=== PATIENT | male | born 1970 | race Caucasian/White ===

== ENCOUNTER 2023-01-31 16:16 | Inpatient (IN) | payer OTHER ==
[2023-01-31 17:21] VITALS: BMI 34.0
[2023-01-31] MEDS ORDERED: DICYCLOMINE HCL 10 MG CAPSULE PO PRN (17:57)
[2023-01-31] MEDS ORDERED: BISMUTH SUBSALICYLATE 524 MG/30 ML PO PRN (17:57)
[2023-01-31] MEDS ORDERED: IBUPROFEN 600 MG TABLET (FP) PO PRN (17:57)
[2023-01-31] MEDS ORDERED: BENZONATATE 200 MG CAPSULE PO PRN (17:57)
[2023-01-31] MEDS ORDERED: guaiFENesin 600 MG TABLET.ER (FP) PO PRN (17:57)
[2023-01-31] MEDS ORDERED: BENZOCAINE/MENTHOL (CHLORASEPTIC ) LOZENGE MM PRN (17:57)
[2023-01-31] MEDS ORDERED: NALOXONE HCL 0.4 MG/ML VIAL IM PRN (17:57)
[2023-01-31] MEDS ORDERED: POLYETHYLENE GLYCOL (HEALTHYLAX) 3350 17 GM PACKET PO PRN (17:57)
[2023-01-31] MEDS ORDERED: LOPERAMIDE HCL 2 MG CAPSULE PO PRN (17:57)
[2023-01-31] MEDS ORDERED: MAGNESIUM HYDROX 2400MG/30ML ORAL SUSPENSION 30 ML CUP PO PRN (17:57)
[2023-01-31] MEDS ORDERED: IBUPROFEN 400 MG TABLET (FP) PO PRN (17:57)
[2023-01-31] MEDS ORDERED: ACETAMINOPHEN 325 MG TABLET (FP) PO PRN (17:57)
[2023-01-31] MEDS ORDERED: MAG HYDROX/AL HYDROX/SIMETH 30 ML UNIT-DOSE CUP PO PRN (17:57)
[2023-01-31] MEDS ORDERED: ONDANSETRON *ODT* 4 MG TABLET SL PRN (17:57)
[2023-01-31] MEDS ORDERED: NALOXONE HCL (KLOXXADO) 8 MG SPRAY NS PRN (17:57)
[2023-01-31] MEDS ORDERED: MELATONIN 5 MG TABLETS PO SCH (22:00)
[2023-01-31] MEDS: METHOCARBAMOL 500 MG TABLET PO PRN (22:11)
[2023-01-31] MEDS: GABAPENTIN 300 MG CAPSULE PO SCH (22:11)
[2023-01-31] MEDS: THIAMINE HCL 100 MG TABLET (FP) PO SCH (22:11)
[2023-02-01] MEDS: GABAPENTIN 300 MG CAPSULE PO SCH ×3 (05:56→22:26)
[2023-02-01] MEDS: hydrOXYzine PAMOATE 25 MG CAPSULE (FP) PO PRN (05:57)
[2023-02-01] MEDS ORDERED: PANTOPRAZOLE 40 MG TABLET PO ONE (06:02)
[2023-02-01] MEDS ORDERED: PANTOPRAZOLE 40 MG TABLET PO SCH (10:00)
[2023-02-01] MEDS: PRENATAL VITAMINS W/ FOLIC ACID TABLET (FP) PO SCH (10:16)
[2023-02-01] MEDS ORDERED: chlordiazePOXIDE HCL 25 MG CAPSULE PO PRN (10:42)
[2023-02-01 10:46] LABS: POTASSIUM 4.4 mmol/L (3.5-5.1)
[2023-02-01 11:00] LABS: ALBUMIN 3.8 g/dl (3.4-5.0); BLOOD UREA NITROGEN 7.9 mg/dL (7-18)
[2023-02-01 11:01] LABS: BILIRUBIN,TOTAL 1.1 mg/dL (0.2-1)
[2023-02-01 11:03] LABS: CREATININE 0.9 mg/dL (0.55-1.3)
[2023-02-01 11:04] LABS: HEMATOCRIT 39.3 % (35.4-49); HEMOGLOBIN 13.9 GM/dL (11.7-16.9); MCH 33.6 pg (25.7-33.7); MCHC 35.3 g/dl (32.0-35.9); MEAN CELL VOLUME 95.1 fl (80-96); MEAN PLT VOLUME 9.2 fl (7.5-11.1); PLATELET COUNT 208 10^3/uL (134-434); RBC 4.14 M/mm3 (4.00-5.60); RDW 13.6 % (11.9-15.9); WHITE BLOOD COUNT 4.4 K/mm3 (4.0-10.0)
[2023-02-01] MEDS: chlordiazePOXIDE HCL 25 MG CAPSULE PO SCH ×3 (11:06→22:25)
[2023-02-01] MEDS: TOPIRAMATE 25 MG TABLET PO SCH ×2 (11:35→22:25)
[2023-02-01] MEDS ORDERED: SUVOREXANT 10 MG TABLET PO PRN (22:00)
[2023-02-01] MEDS: THIAMINE HCL 100 MG TABLET (FP) PO SCH (22:24)
[2023-02-02] MEDS: chlordiazePOXIDE HCL 25 MG CAPSULE PO SCH ×4 (05:38→22:24)
[2023-02-02] MEDS: GABAPENTIN 300 MG CAPSULE PO SCH ×3 (05:39→22:24)
[2023-02-02] MEDS: PANTOPRAZOLE 40 MG TABLET PO SCH (06:31)
[2023-02-02] MEDS: PRENATAL VITAMINS W/ FOLIC ACID TABLET (FP) PO SCH (10:23)
[2023-02-02] MEDS: TOPIRAMATE 25 MG TABLET PO SCH ×2 (10:23→22:24)
[2023-02-02] MEDS: METHOCARBAMOL 500 MG TABLET PO PRN (14:11)
[2023-02-02] MEDS: hydrOXYzine PAMOATE 25 MG CAPSULE (FP) PO PRN (14:11)
[2023-02-02] MEDS: THIAMINE HCL 100 MG TABLET (FP) PO SCH (22:24)
[2023-02-03] MEDS: GABAPENTIN 300 MG CAPSULE PO SCH ×3 (05:43→22:11)
[2023-02-03] MEDS: chlordiazePOXIDE HCL 25 MG CAPSULE PO SCH ×4 (05:43→22:12)
[2023-02-03] MEDS: PANTOPRAZOLE 40 MG TABLET PO SCH (06:30)
[2023-02-03] MEDS: TOPIRAMATE 25 MG TABLET PO SCH ×2 (10:19→22:12)
[2023-02-03] MEDS: PRENATAL VITAMINS W/ FOLIC ACID TABLET (FP) PO SCH (10:19)
[2023-02-03] MEDS: THIAMINE HCL 100 MG TABLET (FP) PO SCH (22:12)
[2023-02-04] MEDS ORDERED: chlordiazePOXIDE HCL 10 MG CAPSULE PO PRN
[2023-02-04] MEDS: chlordiazePOXIDE HCL 10 MG CAPSULE PO SCH ×4 (05:24→22:16)
[2023-02-04] MEDS: GABAPENTIN 300 MG CAPSULE PO SCH ×3 (05:24→22:16)
[2023-02-04] MEDS: PANTOPRAZOLE 40 MG TABLET PO SCH (06:03)
[2023-02-04] MEDS: PRENATAL VITAMINS W/ FOLIC ACID TABLET (FP) PO SCH (09:52)
[2023-02-04] MEDS: TOPIRAMATE 25 MG TABLET PO SCH ×2 (09:53→22:16)
[2023-02-04] MEDS: hydrOXYzine PAMOATE 25 MG CAPSULE (FP) PO PRN (09:54)
[2023-02-04] MEDS: METHOCARBAMOL 500 MG TABLET PO PRN (09:54)
[2023-02-04] MEDS: THIAMINE HCL 100 MG TABLET (FP) PO SCH (22:16)
[2023-02-05] MEDS: chlordiazePOXIDE HCL 10 MG CAPSULE PO SCH ×2 (05:31→16:58)
[2023-02-05] MEDS: GABAPENTIN 300 MG CAPSULE PO SCH ×3 (05:31→22:08)
[2023-02-05] MEDS: PANTOPRAZOLE 40 MG TABLET PO SCH (06:57)
[2023-02-05] MEDS: METHOCARBAMOL 500 MG TABLET PO PRN (09:55)
[2023-02-05] MEDS: PRENATAL VITAMINS W/ FOLIC ACID TABLET (FP) PO SCH (09:55)
[2023-02-05] MEDS: hydrOXYzine PAMOATE 25 MG CAPSULE (FP) PO PRN ×2 (09:55→22:12)
[2023-02-05] MEDS: TOPIRAMATE 25 MG TABLET PO SCH ×2 (09:56→22:09)
[2023-02-05] MEDS ORDERED: chlordiazePOXIDE 5 MG CAPSULE PO ONE (11:45)
[2023-02-05] MEDS: THIAMINE HCL 100 MG TABLET (FP) PO SCH (22:08)
[2023-02-05] MEDS ORDERED: MELATONIN 5 MG TABLETS PO PRN (22:49)
[2023-02-06] MEDS ORDERED: chlordiazePOXIDE HCL 10 MG CAPSULE PO ONE (05:00)
[2023-02-06] MEDS: GABAPENTIN 300 MG CAPSULE PO SCH (05:29)
[2023-02-06] MEDS: PANTOPRAZOLE 40 MG TABLET PO SCH (06:04)
[2023-02-06 08:54] VITALS: BP 121/86; PULSE 81; RESP 16; TEMP 98.7
[2023-02-06] MEDS: TOPIRAMATE 25 MG TABLET PO SCH (09:16)
[2023-02-06] MEDS: PRENATAL VITAMINS W/ FOLIC ACID TABLET (FP) PO SCH (09:17)
== END 2023-02-06 09:19 | disposition home or self-care (01) | DRG 775 ==
LOC: YASAS 16:16 → Y6N 18:03
PROVIDERS: ADMIT Allergy & Immunology; ATTEND Surgery
PROC: HZ2ZZZZ Detoxification Services for Substance Abuse Treatment (ICD-10-PCS; principal; 2023-01-31)
DX: F10.230 Alcohol dependence with withdrawal, uncomplicated (principal); F12.20 Cannabis dependence, uncomplicated; F43.10 Post-traumatic stress disorder, unspecified; F10.282 Alcohol dependence with alcohol-induced sleep disorder; F10.24 Alcohol dependence with alcohol-induced mood disorder; F32.9 Major depressive disorder, single episode, unspecified; G62.9 Polyneuropathy, unspecified; K21.9 Gastro-esophageal reflux disease without esophagitis; G47.30 Sleep apnea, unspecified; R60.0 Localized edema; Z62.810 Personal history of physical and sexual abuse in childhood; Z28.310 Unvaccinated for COVID-19; Z28.9 Immunization not carried out for unspecified reason; Z87.891 Personal history of nicotine dependence
CPT/HCPCS: 36415; 80053; 85027; 86780; 87635

== ENCOUNTER 2023-07-18 18:23 | Inpatient (IN) | payer OTHER ==
[2023-07-18 20:35] VITALS: BMI 31.5
[2023-07-18] MEDS ORDERED: chlordiazePOXIDE HCL 25 MG CAPSULE ONE (23:55)
[2023-07-18] MEDS ORDERED: LOPERAMIDE HCL 2 MG CAPSULE PO PRN (23:56)
[2023-07-18] MEDS ORDERED: BISMUTH SUBSALICYLATE 524 MG/30 ML PO PRN (23:56)
[2023-07-18] MEDS ORDERED: guaiFENesin 600 MG TABLET.ER (FP) PO PRN (23:56)
[2023-07-18] MEDS ORDERED: ACETAMINOPHEN 325 MG TABLET (FP) PO PRN (23:56)
[2023-07-18] MEDS ORDERED: METHOCARBAMOL 500 MG TABLET PO PRN (23:56)
[2023-07-18] MEDS ORDERED: BENZOCAINE/MENTHOL (CHLORASEPTIC ) LOZENGE MM PRN (23:56)
[2023-07-18] MEDS ORDERED: P-EPHED 60MG/TRIPROLIDI 2.5MG TABLET PO PRN (23:56)
[2023-07-18] MEDS ORDERED: MAGNESIUM HYDROX 2400MG/30ML ORAL SUSPENSION 30 ML CUP PO PRN (23:56)
[2023-07-18] MEDS ORDERED: IBUPROFEN 400 MG TABLET (FP) PO PRN (23:56)
[2023-07-18] MEDS ORDERED: IBUPROFEN 600 MG TABLET (FP) PO PRN (23:56)
[2023-07-18] MEDS ORDERED: ONDANSETRON *ODT* 4 MG TABLET SL PRN (23:56)
[2023-07-18] MEDS ORDERED: POLYETHYLENE GLYCOL (HEALTHYLAX) 3350 17 GM PACKET PO PRN (23:56)
[2023-07-18] MEDS ORDERED: BENZONATATE 200 MG CAPSULE PO PRN (23:56)
[2023-07-18] MEDS ORDERED: DICYCLOMINE HCL 10 MG CAPSULE PO PRN (23:56)
[2023-07-19] MEDS: chlordiazePOXIDE HCL 25 MG CAPSULE PO SCH (00:09)
[2023-07-19] MEDS: GABAPENTIN 300 MG CAPSULE PO SCH (00:10)
[2023-07-19] MEDS: PANTOPRAZOLE 20 MG TABLET PO ONE (00:10)
[2023-07-19] MEDS: MAG HYDROX/AL HYDROX/SIMETH 30 ML UNIT-DOSE CUP PO ONE (00:10)
[2023-07-19] MEDS: PRENATAL VITAMINS W/ FOLIC ACID TABLET (FP) PO SCH (10:17)
[2023-07-19] MEDS: chlordiazePOXIDE HCL 25 MG CAPSULE PO PRN (12:23)
[2023-07-19 12:28] LABS: HEMATOCRIT 38.1 % (35.4-49); HEMOGLOBIN 12.8 GM/dL (11.7-16.9); MCH 33.7 pg (25.7-33.7); MCHC 33.7 g/dl (32.0-35.9); MEAN CELL VOLUME 99.9 fl (80-96); MEAN PLT VOLUME 9.2 fl (7.5-11.1); PLATELET COUNT 167 10^3/uL (134-434); RBC 3.81 M/mm3 (4.00-5.60); RDW 14.4 % (11.9-15.9); WHITE BLOOD COUNT 5.5 K/mm3 (4.0-10.0)
[2023-07-19 12:45] LABS: POTASSIUM 3.9 mmol/L (3.5-5.1)
[2023-07-19 12:47] LABS: CALCIUM 10.1 mg/dL (8.5-10.1)
[2023-07-19 12:48] LABS: ALBUMIN 3.8 g/dl (3.4-5.0)
[2023-07-19 12:52] LABS: CREATININE 1.1 mg/dL (0.55-1.3); TOT PROT 6.7 g/dl (6.4-8.2)
[2023-07-19 12:53] LABS: BILIRUBIN,TOTAL 1.8 mg/dL (0.2-1)
[2023-07-19] MEDS: traZODone HCL 50 MG TABLET (FP) PO SCH (22:18)
[2023-07-19] MEDS: THIAMINE HCL 100 MG TABLET (FP) PO SCH (22:18)
[2023-07-19] MEDS: MELATONIN 5 MG TABLETS PO SCH (22:18)
[2023-07-20] MEDS: chlordiazePOXIDE HCL 25 MG CAPSULE PO SCH (05:50)
[2023-07-20] MEDS: LIDOCAINE 5% TOPICAL PATCH TP SCH (20:04)
[2023-07-20] MEDS: METHOCARBAMOL 500 MG TABLET PO PRN (22:21)
[2023-07-20] MEDS: LIDOCAINE PATCH REMOVAL MC SCH (22:24)
[2023-07-21] MEDS ORDERED: chlordiazePOXIDE HCL 10 MG CAPSULE PO PRN
[2023-07-21] MEDS: chlordiazePOXIDE HCL 10 MG CAPSULE PO SCH (05:55)
[2023-07-21] MEDS: hydrOXYzine PAMOATE 25 MG CAPSULE (FP) PO PRN (17:41)
[2023-07-22] MEDS: chlordiazePOXIDE HCL 10 MG CAPSULE PO SCH (05:38)
[2023-07-22] MEDS: TOPIRAMATE 25 MG TABLET PO SCH (22:06)
[2023-07-23] MEDS: chlordiazePOXIDE HCL 10 MG CAPSULE PO ONE ×2 (05:46→15:47)
[2023-07-23] MEDS: MAG HYDROX/AL HYDROX/SIMETH 30 ML UNIT-DOSE CUP PO PRN (14:36)
[2023-07-23] MEDS: PRAZOSIN HCL 1 MG CAPSULE PO SCH (22:10)
[2023-07-25 09:15] VITALS: BP 115/81; PULSE 79; RESP 18; TEMP 96.8
== END 2023-07-25 10:10 | disposition home or self-care (01) | DRG 775 ==
LOC: YASAS 18:23 → Y3N 07-19 01:29
PROVIDERS: ADMIT Allergy & Immunology; ATTEND Allergy & Immunology
PROC: HZ2ZZZZ Detoxification Services for Substance Abuse Treatment (ICD-10-PCS; principal; 2023-07-19)
DX: F10.230 Alcohol dependence with withdrawal, uncomplicated (principal); F31.9 Bipolar disorder, unspecified; F43.10 Post-traumatic stress disorder, unspecified; G47.00 Insomnia, unspecified; K62.5 Hemorrhage of anus and rectum; K21.9 Gastro-esophageal reflux disease without esophagitis; R74.01 Elevation of levels of liver transaminase levels; Z62.810 Personal history of physical and sexual abuse in childhood; Z63.8 Other specified problems related to primary support group; Z87.891 Personal history of nicotine dependence; Z28.310 Unvaccinated for COVID-19; Z28.9 Immunization not carried out for unspecified reason; M54.50 Low back pain, unspecified; S32.018D Other fracture of first lumbar vertebra, subsequent encounter for fracture with routine healing; W19.XXXD Unspecified fall, subsequent encounter
CPT/HCPCS: 36415; 71101-TC-RT-FY; 72100-TC-FY; 80053; 80305; 85027; 86780; 87635; 87811; 93005; 93010

== ENCOUNTER 2023-11-29 13:59 | Inpatient (IN) | payer OTHER ==
[2023-11-29 15:31] VITALS: BMI 32.5
[2023-11-29] MEDS ORDERED: BISMUTH SUBSALICYLATE 524 MG/30 ML PO PRN (16:01)
[2023-11-29] MEDS ORDERED: ONDANSETRON *ODT* 4 MG TABLET SL PRN (16:01)
[2023-11-29] MEDS ORDERED: POLYETHYLENE GLYCOL (HEALTHYLAX) 3350 17 GM PACKET PO PRN (16:01)
[2023-11-29] MEDS ORDERED: BENZONATATE 200 MG CAPSULE PO PRN (16:01)
[2023-11-29] MEDS ORDERED: guaiFENesin 600 MG TABLET.ER (FP) PO PRN (16:01)
[2023-11-29] MEDS ORDERED: BENZOCAINE/MENTHOL (CHLORASEPTIC ) LOZENGE MM PRN (16:01)
[2023-11-29] MEDS ORDERED: IBUPROFEN 400 MG TABLET (FP) PO PRN (16:01)
[2023-11-29] MEDS ORDERED: MAG HYDROX/AL HYDROX/SIMETH 30 ML UNIT-DOSE CUP PO PRN (16:01)
[2023-11-29] MEDS ORDERED: DICYCLOMINE HCL 10 MG CAPSULE PO PRN (16:01)
[2023-11-29] MEDS ORDERED: MAGNESIUM HYDROX 2400MG/30ML ORAL SUSPENSION 30 ML CUP PO PRN (16:01)
[2023-11-29] MEDS ORDERED: ACETAMINOPHEN 325 MG TABLET (FP) PO PRN (16:01)
[2023-11-29] MEDS ORDERED: LOPERAMIDE HCL 2 MG CAPSULE PO PRN (16:01)
[2023-11-29] MEDS: chlordiazePOXIDE HCL 25 MG CAPSULE PO PRN (17:54)
[2023-11-29] MEDS: METHOCARBAMOL 500 MG TABLET PO PRN (17:54)
[2023-11-29] MEDS: traZODone HCL 50 MG TABLET (FP) PO ONE (22:28)
[2023-11-29] MEDS: MELATONIN 5 MG TABLETS PO SCH (22:28)
[2023-11-29] MEDS: GABAPENTIN 400 MG CAPSULE PO SCH (22:28)
[2023-11-29] MEDS: THIAMINE 100 MG TABLET PO SCH (22:29)
[2023-11-29] MEDS: TOPIRAMATE 25 MG TABLET PO ONE (22:29)
[2023-11-29] MEDS: chlordiazePOXIDE HCL 25 MG CAPSULE PO SCH (22:29)
[2023-11-29] MEDS: PRAZOSIN HCL 1 MG CAPSULE PO ONE (22:33)
[2023-11-29] MEDS: LIDOCAINE PATCH REMOVAL MC SCH (22:46)
[2023-11-30] MEDS: PANTOPRAZOLE 40 MG TABLET PO SCH (10:07)
[2023-11-30] MEDS: TOPIRAMATE 25 MG TABLET PO SCH (10:07)
[2023-11-30] MEDS: PRENATAL VITAMINS W/ FOLIC ACID TABLET (FP) PO SCH (10:08)
[2023-11-30] MEDS: LIDOCAINE 5% TOPICAL PATCH TP SCH (10:12)
[2023-11-30 10:47] LABS: HEMATOCRIT 39.8 % (35.4-49); HEMOGLOBIN 14.2 GM/dL (11.7-16.9); MCH 34.6 pg (25.7-33.7); MCHC 35.7 g/dl (32.0-35.9); MEAN CELL VOLUME 96.9 fl (80-96); PLATELET COUNT 197 10^3/uL (134-434); RBC 4.11 M/mm3 (4.00-5.60); RDW 13.7 % (11.9-15.9); WHITE BLOOD COUNT 5.7 K/mm3 (4.0-10.0)
[2023-11-30 10:58] LABS: CHLORIDE 104 mmol/L (98-107); POTASSIUM 4.1 mmol/L (3.5-5.1); SODIUM 139 mmol/L (136-145)
[2023-11-30 11:07] LABS: BLOOD UREA NITROGEN 21.7 mg/dL (7-18)
[2023-11-30 11:08] LABS: CALCIUM 9.7 mg/dL (8.5-10.1)
[2023-11-30 11:09] LABS: ANION GAP 8 mmol/L (4-13); CO2 27 mmol/L (21-32); GLUCOSE,RANDOM 163 mg/dL (74-106)
[2023-11-30 11:11] LABS: CREATININE 1.1 mg/dL (0.55-1.3); SGOT/AST 18 U/L (15-37); SGPT/ALT 23 U/L (13-61)
[2023-11-30 11:13] LABS: BILIRUBIN,TOTAL 1.1 mg/dL (0.2-1); TOT PROT 7.5 g/dl (6.4-8.2)
[2023-11-30 11:14] LABS: ALK PHOS 65 U/L (45-117)
[2023-11-30] MEDS: FAMOTIDINE 40 MG TABLET PO SCH (11:14)
[2023-11-30] MEDS: traZODone HCL 50 MG TABLET (FP) PO SCH (22:13)
[2023-11-30] MEDS: PRAZOSIN HCL 1 MG CAPSULE PO SCH (22:13)
[2023-12-01] MEDS: chlordiazePOXIDE HCL 25 MG CAPSULE PO SCH (06:00)
[2023-12-01] MEDS: FAMOTIDINE 20 MG TABLET PO SCH (10:16)
[2023-12-01] MEDS: NALTREXONE HCL 50 MG TABLET PO SCH (10:20)
[2023-12-01] MEDS: ACAMPROSATE CALCIUM 333 MG TABLET.DR PO SCH (21:28)
[2023-12-02] MEDS: chlordiazePOXIDE HCL 10 MG CAPSULE PO SCH (05:37)
[2023-12-02] MEDS: chlordiazePOXIDE HCL 10 MG CAPSULE PO PRN (18:59)
[2023-12-03] MEDS ORDERED: chlordiazePOXIDE HCL 10 MG CAPSULE PO SCH (05:00)
[2023-12-03] MEDS: chlordiazePOXIDE HCL 10 MG CAPSULE PO SCH (05:43)
[2023-12-03] MEDS ORDERED: OXYMETAZOLINE 0.05% NASAL SOLUTION 15 ML BOTTLE NS PRN (08:55)
[2023-12-03] MEDS: IBUPROFEN 600 MG TABLET (FP) PO PRN (13:04)
[2023-12-04] MEDS ORDERED: chlordiazePOXIDE HCL 10 MG CAPSULE PO ONE (05:00)
[2023-12-04] MEDS: chlordiazePOXIDE HCL 10 MG CAPSULE PO SCH (05:59)
[2023-12-05] MEDS: chlordiazePOXIDE HCL 10 MG CAPSULE PO ONE (05:35)
[2023-12-05 05:56] VITALS: BP 119/79; PULSE 69; RESP 17; TEMP 97.3
== END 2023-12-05 09:28 | disposition home or self-care (01) | DRG 775 ==
LOC: YASAS 13:59 → Y6N 17:00
PROVIDERS: ADMIT Allergy & Immunology; ATTEND Surgery
PROC: HZ2ZZZZ Detoxification Services for Substance Abuse Treatment (ICD-10-PCS; principal; 2023-11-29)
DX: F10.230 Alcohol dependence with withdrawal, uncomplicated (principal); F10.24 Alcohol dependence with alcohol-induced mood disorder; F10.282 Alcohol dependence with alcohol-induced sleep disorder; F12.20 Cannabis dependence, uncomplicated; F32.9 Major depressive disorder, single episode, unspecified; F43.10 Post-traumatic stress disorder, unspecified; K21.9 Gastro-esophageal reflux disease without esophagitis; G62.89 Other specified polyneuropathies; G47.33 Obstructive sleep apnea (adult) (pediatric); I83.90 Asymptomatic varicose veins of unspecified lower extremity; R42 Dizziness and giddiness; Z87.891 Personal history of nicotine dependence; Z62.810 Personal history of physical and sexual abuse in childhood; Z56.0 Unemployment, unspecified
CPT/HCPCS: 36415; 80053; 80305; 80307; 83036; 85027; 86780

== ENCOUNTER 2024-01-01 15:48 | Inpatient (IN) | payer OTHER ==
[2024-01-01 17:07] VITALS: BMI 32.5
[2024-01-01] MEDS ORDERED: DICYCLOMINE HCL 10 MG CAPSULE PO PRN (18:32)
[2024-01-01] MEDS ORDERED: BENZONATATE 200 MG CAPSULE PO PRN (18:32)
[2024-01-01] MEDS ORDERED: MAGNESIUM HYDROX 2400MG/30ML ORAL SUSPENSION 30 ML CUP PO PRN (18:32)
[2024-01-01] MEDS ORDERED: IBUPROFEN 600 MG TABLET (FP) PO PRN (18:32)
[2024-01-01] MEDS ORDERED: guaiFENesin 600 MG TABLET.ER (FP) PO PRN (18:32)
[2024-01-01] MEDS ORDERED: METHOCARBAMOL 500 MG TABLET PO PRN (18:32)
[2024-01-01] MEDS ORDERED: IBUPROFEN 400 MG TABLET (FP) PO PRN (18:32)
[2024-01-01] MEDS ORDERED: POLYETHYLENE GLYCOL (HEALTHYLAX) 3350 17 GM PACKET PO PRN (18:32)
[2024-01-01] MEDS ORDERED: BENZOCAINE/MENTHOL (CHLORASEPTIC ) LOZENGE MM PRN (18:32)
[2024-01-01] MEDS ORDERED: ACETAMINOPHEN 325 MG TABLET (FP) PO PRN (18:32)
[2024-01-01] MEDS ORDERED: MAG HYDROX/AL HYDROX/SIMETH 30 ML UNIT-DOSE CUP PO PRN (18:32)
[2024-01-01] MEDS ORDERED: ACETAMINOPHEN 325 MG TABLET (FP) ONE (19:11)
[2024-01-01] MEDS: MELATONIN 5 MG TABLETS PO SCH (22:25)
[2024-01-01] MEDS: chlordiazePOXIDE HCL 25 MG CAPSULE PO SCH (22:25)
[2024-01-01] MEDS: THIAMINE 100 MG TABLET PO SCH (22:25)
[2024-01-02] MEDS: ONDANSETRON *ODT* 4 MG TABLET SL PRN (05:24)
[2024-01-02] MEDS: GABAPENTIN 400 MG CAPSULE PO SCH (08:59)
[2024-01-02] MEDS: PRENATAL VITAMINS W/ FOLIC ACID TABLET (FP) PO SCH (09:00)
[2024-01-02] MEDS: PANTOPRAZOLE 40 MG TABLET PO SCH (10:04)
[2024-01-02] MEDS: amLODIPine BESYLATE 5 MG TABLET (FP) PO SCH (10:04)
[2024-01-02] MEDS: TOPIRAMATE 25 MG TABLET PO SCH (10:04)
[2024-01-02] MEDS: amLODIPine BESYLATE 5 MG TABLET (FP) PO ONE (12:39)
[2024-01-02] MEDS ORDERED: PATIENT'S OWN MEDICATION (NON-FORMULARY) (Prazosin Hcl 2 MG Capsule) PO SCH (22:00)
[2024-01-02] MEDS: PRAZOSIN HCL 1 MG CAPSULE PO SCH (22:21)
[2024-01-02] MEDS: traZODone HCL 50 MG TABLET (FP) PO SCH (22:21)
[2024-01-03] MEDS: chlordiazePOXIDE HCL 25 MG CAPSULE PO SCH (05:26)
[2024-01-03] MEDS: PANTOPRAZOLE 40 MG TABLET PO SCH (06:01)
[2024-01-03] MEDS: chlordiazePOXIDE HCL 25 MG CAPSULE PO PRN (13:26)
[2024-01-03] MEDS: traZODone HCL 50 MG TABLET (FP) PO SCH (22:34)
[2024-01-04] MEDS ORDERED: chlordiazePOXIDE HCL 10 MG CAPSULE PO PRN
[2024-01-04] MEDS: chlordiazePOXIDE HCL 10 MG CAPSULE PO SCH (05:28)
[2024-01-04 11:38] LABS: HEMOGLOBIN 13.5 GM/dL (11.7-16.9); MCH 33.8 pg (25.7-33.7); MCHC 34.6 g/dl (32.0-35.9); MEAN CELL VOLUME 97.6 fl (80-96); MEAN PLT VOLUME 9.4 fl (7.5-11.1); PLATELET COUNT 180 10^3/uL (134-434); RDW 14.2 % (11.9-15.9); WHITE BLOOD COUNT 4.4 K/mm3 (4.0-10.0)
[2024-01-04 11:41] LABS: POTASSIUM 4.1 mmol/L (3.5-5.1)
[2024-01-04 11:45] LABS: ALBUMIN 3.7 g/dl (3.4-5.0); CALCIUM 10.3 mg/dL (8.5-10.1)
[2024-01-04 11:46] LABS: BLOOD UREA NITROGEN 11.8 mg/dL (7-18)
[2024-01-04 11:50] LABS: BILIRUBIN,TOTAL 0.9 mg/dL (0.2-1); TOT PROT 7.1 g/dl (6.4-8.2)
[2024-01-04] MEDS: cloNIDine HCL 0.1 MG TABLET PO SCH (13:13)
[2024-01-04] MEDS: BISMUTH SUBSALICYLATE 524 MG/30 ML PO PRN (23:23)
[2024-01-05] MEDS: chlordiazePOXIDE HCL 10 MG CAPSULE PO SCH (05:45)
[2024-01-05] MEDS: LOPERAMIDE HCL 2 MG CAPSULE PO PRN (13:38)
[2024-01-05] MEDS: HYDROCORTISONE 2.5% TOPICAL CREAM 30 GM TUBE TP PRN (17:31)
[2024-01-05] MEDS: DIPHENOXYLATE 2.5/ATROPINE.025 1 COMBO TABLET PO PRN (19:11)
[2024-01-05] MEDS: SIMETHICONE 80 MG TAB.CHEW (FP) PO PRN (22:07)
[2024-01-06] MEDS: chlordiazePOXIDE HCL 10 MG CAPSULE PO ONE (05:31)
[2024-01-06 05:52] VITALS: RESP 18
[2024-01-06 08:40] VITALS: TEMP 97.8
[2024-01-06 09:46] VITALS: BP 113/76; PULSE 75
== END 2024-01-06 09:46 | disposition home or self-care (01) | DRG 775 ==
LOC: YASAS 15:48 → Y6N 19:02
PROVIDERS: ADMIT Allergy & Immunology; ATTEND Psychiatry & Neurology Pain Medicine
PROC: HZ2ZZZZ Detoxification Services for Substance Abuse Treatment (ICD-10-PCS; principal; 2024-01-01)
DX: F10.230 Alcohol dependence with withdrawal, uncomplicated (principal); F12.20 Cannabis dependence, uncomplicated; F10.282 Alcohol dependence with alcohol-induced sleep disorder; F10.24 Alcohol dependence with alcohol-induced mood disorder; F32.9 Major depressive disorder, single episode, unspecified; F43.10 Post-traumatic stress disorder, unspecified; G62.9 Polyneuropathy, unspecified; G47.33 Obstructive sleep apnea (adult) (pediatric); I10 Essential (primary) hypertension; K21.9 Gastro-esophageal reflux disease without esophagitis
CPT/HCPCS: 36415; 80053; 80305; 80307; 85027; 86780; Q0162

== ENCOUNTER 2024-03-16 16:15 | Inpatient (IN) | payer OTHER ==
[2024-03-16 16:53] VITALS: BMI 33.2
[2024-03-16] MEDS ORDERED: guaiFENesin 600 MG TABLET.ER (FP) PO PRN (17:17)
[2024-03-16] MEDS ORDERED: POLYETHYLENE GLYCOL (HEALTHYLAX) 3350 17 GM PACKET PO PRN (17:17)
[2024-03-16] MEDS ORDERED: BENZONATATE 200 MG CAPSULE PO PRN (17:17)
[2024-03-16] MEDS ORDERED: NALOXONE (NARCAN) HCL 4 MG/0.1 ML SPRAY NS PRN (17:17)
[2024-03-16] MEDS ORDERED: ONDANSETRON *ODT* 4 MG TABLET SL PRN (17:17)
[2024-03-16] MEDS ORDERED: MAG HYDROX/AL HYDROX/SIMETH 30 ML UNIT-DOSE CUP PO PRN (17:17)
[2024-03-16] MEDS ORDERED: NALOXONE (NYS OPIOID OVERDOSE PROGRAM) 4 MG/0.1 ML SPRAY NS PRN (17:17)
[2024-03-16] MEDS ORDERED: BENZOCAINE/MENTHOL (CHLORASEPTIC ) LOZENGE MM PRN (17:17)
[2024-03-16] MEDS ORDERED: MAGNESIUM HYDROX 2400MG/30ML ORAL SUSPENSION 30 ML CUP PO PRN (17:17)
[2024-03-16] MEDS ORDERED: DICYCLOMINE HCL 10 MG CAPSULE PO PRN (17:17)
[2024-03-16] MEDS ORDERED: IBUPROFEN 400 MG TABLET (FP) PO PRN (17:17)
[2024-03-16] MEDS ORDERED: BISMUTH SUBSALICYLATE 524 MG/30 ML PO PRN (17:17)
[2024-03-16] MEDS ORDERED: LOPERAMIDE HCL 2 MG CAPSULE PO PRN (17:17)
[2024-03-16] MEDS ORDERED: amLODIPine BESYLATE 5 MG TABLET (FP) ONE (17:58)
[2024-03-16] MEDS ORDERED: chlordiazePOXIDE HCL 25 MG CAPSULE ONE (17:58)
[2024-03-16] MEDS: chlordiazePOXIDE HCL 25 MG CAPSULE PO SCH (18:02)
[2024-03-16] MEDS: amLODIPine BESYLATE 5 MG TABLET (FP) PO SCH (18:02)
[2024-03-16] MEDS: ACETAMINOPHEN 325 MG TABLET (FP) PO PRN (18:42)
[2024-03-16] MEDS: hydrOXYzine PAMOATE 25 MG CAPSULE (FP) PO PRN (18:42)
[2024-03-16] MEDS: LIDOCAINE 5% TOPICAL PATCH TP SCH (18:47)
[2024-03-16 20:45] LABS: PH,URINE 8.5 (5.0-8.0); URINE APPEARANCE CLEAR; URINE BILIRUBIN NEGATIVE (NEGATIVE); URINE COLOR YELLOW; URINE GLUCOSE (UA) NEGATIVE (NEGATIVE); URINE KETONE NEGATIVE (NEGATIVE); URINE LEUK ESTERASE NEGATIVE (NEGATIVE); URINE NITRITE NEGATIVE (NEGATIVE); URINE PROTEIN TRACE (NEGATIVE); URINE UROBILINOGEN 0.2 mg/dL (0.2-1.0)
[2024-03-16] MEDS: THIAMINE 100 MG TABLET PO SCH (22:16)
[2024-03-16] MEDS: MELATONIN 5 MG TABLETS PO SCH (22:16)
[2024-03-16] MEDS: GABAPENTIN 400 MG CAPSULE PO SCH (22:17)
[2024-03-16] MEDS: LIDOCAINE PATCH REMOVAL MC SCH (22:18)
[2024-03-17] MEDS: PRENATAL VITAMINS W/ FOLIC ACID TABLET (FP) PO SCH (09:30)
[2024-03-17] MEDS: TOPIRAMATE 25 MG TABLET PO SCH (09:30)
[2024-03-17] MEDS: PANTOPRAZOLE 40 MG TABLET PO SCH (09:30)
[2024-03-17] MEDS: ACAMPROSATE CALCIUM 333 MG TABLET.DR PO SCH (13:21)
[2024-03-17] MEDS: DOCUSATE SODIUM 100 MG CAPSULE (FP) PO SCH (13:21)
[2024-03-17] MEDS: SIMETHICONE 80 MG TAB.CHEW (FP) PO SCH (13:22)
[2024-03-17] MEDS: METHOCARBAMOL 500 MG TABLET PO PRN (13:22)
[2024-03-17 14:41] LABS: HEMATOCRIT 37.3 % (35.4-49); HEMOGLOBIN 12.8 GM/dL (11.7-16.9); MCH 32.6 pg (25.7-33.7); MCHC 34.3 g/dl (32.0-35.9); MEAN PLT VOLUME 9.8 fl (7.5-11.1); PLATELET COUNT 162 10^3/uL (134-434); RBC 3.92 M/mm3 (4.00-5.60); RDW 15.2 % (11.9-15.9); WHITE BLOOD COUNT 5.1 K/mm3 (4.0-10.0)
[2024-03-17 14:45] LABS: CHLORIDE 105 mmol/L (98-107); POTASSIUM 3.8 mmol/L (3.5-5.1); SODIUM 141 mmol/L (136-145)
[2024-03-17 14:53] LABS: CALCIUM 9.5 mg/dL (8.5-10.1)
[2024-03-17 14:54] LABS: ALBUMIN 3.4 g/dl (3.4-5.0); ANION GAP 7 mmol/L (4-13); BLOOD UREA NITROGEN 7.4 mg/dL (7-18); CO2 29 mmol/L (21-32); GLUCOSE,RANDOM 106 mg/dL (74-106); SGPT/ALT 30 U/L (13-61)
[2024-03-17 14:56] LABS: BILIRUBIN,TOTAL 1.2 mg/dL (0.2-1); TOT PROT 6.3 g/dl (6.4-8.2)
[2024-03-17 14:57] LABS: ALK PHOS 60 U/L (45-117); CREATININE 1.1 mg/dL (0.55-1.3)
[2024-03-17 15:00] LABS: SGOT/AST 25 U/L (15-37)
[2024-03-17] MEDS: IBUPROFEN 600 MG TABLET (FP) PO PRN (17:20)
[2024-03-17] MEDS: SENNOSIDES 8.6MG TABLET (FP) PO PRN (22:21)
[2024-03-17] MEDS: traZODone HCL 100 MG TABLET (FP) PO SCH (22:21)
[2024-03-18] MEDS: chlordiazePOXIDE HCL 25 MG CAPSULE PO SCH (05:59)
[2024-03-18] MEDS: PANTOPRAZOLE 40 MG TABLET PO SCH (07:55)
[2024-03-18] MEDS: chlordiazePOXIDE HCL 25 MG CAPSULE PO PRN (13:39)
[2024-03-19] MEDS: chlordiazePOXIDE HCL 10 MG CAPSULE PO SCH (05:35)
[2024-03-19] MEDS: chlordiazePOXIDE HCL 10 MG CAPSULE PO PRN (13:22)
[2024-03-20] MEDS: chlordiazePOXIDE HCL 10 MG CAPSULE PO SCH (05:57)
[2024-03-21] MEDS: chlordiazePOXIDE HCL 10 MG CAPSULE PO ONE (05:50)
[2024-03-21 08:49] VITALS: BP 126/80; PULSE 86; RESP 18; TEMP 97.7
== END 2024-03-21 10:41 | disposition other institution (70) | DRG 775 ==
LOC: YASAS 16:15 → Y6N 17:26
PROVIDERS: ADMIT Allergy & Immunology; ATTEND Surgery
PROC: HZ2ZZZZ Detoxification Services for Substance Abuse Treatment (ICD-10-PCS; principal; 2024-03-16)
DX: F10.230 Alcohol dependence with withdrawal, uncomplicated (principal); F10.24 Alcohol dependence with alcohol-induced mood disorder; F43.10 Post-traumatic stress disorder, unspecified; G62.9 Polyneuropathy, unspecified; G47.30 Sleep apnea, unspecified; G47.00 Insomnia, unspecified; I10 Essential (primary) hypertension; K21.9 Gastro-esophageal reflux disease without esophagitis; K59.00 Constipation, unspecified; Z62.810 Personal history of physical and sexual abuse in childhood; Z63.8 Other specified problems related to primary support group; Z87.891 Personal history of nicotine dependence
CPT/HCPCS: 36415; 74018-TC-FY; 80053; 80305; 80307; 81003; 85027; 86780; 87086

== ENCOUNTER 2024-07-16 12:11 | Inpatient (IN) | payer OTHER ==
[2024-07-16 12:35] VITALS: BMI 32.5
[2024-07-16] MEDS ORDERED: IBUPROFEN 400 MG TABLET (FP) PO PRN (12:43)
[2024-07-16] MEDS ORDERED: BISMUTH SUBSALICYLATE 262 MG/15 ML BTL PO PRN (12:43)
[2024-07-16] MEDS ORDERED: DICYCLOMINE HCL 10 MG CAPSULE PO PRN (12:43)
[2024-07-16] MEDS ORDERED: MAGNESIUM HYDROX 2400MG/30ML ORAL SUSPENSION 30 ML CUP PO PRN (12:43)
[2024-07-16] MEDS ORDERED: BENZOCAINE/MENTHOL (CHLORASEPTIC ) LOZENGE MM PRN (12:43)
[2024-07-16] MEDS ORDERED: NALOXONE (NARCAN) HCL 4 MG/0.1 ML SPRAY NS PRN (12:43)
[2024-07-16] MEDS ORDERED: ONDANSETRON *ODT* 4 MG TABLET SL PRN (12:43)
[2024-07-16] MEDS ORDERED: BENZONATATE 200 MG CAPSULE PO PRN (12:43)
[2024-07-16] MEDS ORDERED: MAG HYDROX/AL HYDROX/SIMETH 30 ML UNIT-DOSE CUP PO PRN (12:43)
[2024-07-16] MEDS ORDERED: POLYETHYLENE GLYCOL (HEALTHYLAX) 3350 17 GM PACKET PO PRN (12:43)
[2024-07-16] MEDS ORDERED: LOPERAMIDE HCL 2 MG CAPSULE PO PRN (12:43)
[2024-07-16] MEDS ORDERED: guaiFENesin 600 MG TABLET.ER (FP) PO PRN (12:43)
[2024-07-16] MEDS ORDERED: PRENATAL VITAMINS W/ FOLIC ACID TABLET (FP) PO ONE (14:28)
[2024-07-16] MEDS ORDERED: ACETAMINOPHEN 325 MG TABLET (FP) ONE (14:28)
[2024-07-16] MEDS ORDERED: chlordiazePOXIDE HCL 25 MG CAPSULE ONE (14:28)
[2024-07-16] MEDS: ACETAMINOPHEN 325 MG TABLET (FP) PO PRN (14:31)
[2024-07-16] MEDS: PRENATAL VITAMINS W/ FOLIC ACID TABLET (FP) PO SCH (14:31)
[2024-07-16] MEDS: chlordiazePOXIDE HCL 25 MG CAPSULE PO PRN (14:32)
[2024-07-16] MEDS: PANTOPRAZOLE 40 MG TABLET PO SCH (15:34)
[2024-07-16] MEDS: chlordiazePOXIDE HCL 25 MG CAPSULE PO SCH (17:18)
[2024-07-16] MEDS: IBUPROFEN 600 MG TABLET (FP) PO PRN (17:24)
[2024-07-16] MEDS: traZODone HCL 100 MG TABLET (FP) PO SCH (22:22)
[2024-07-16] MEDS: MELATONIN 5 MG TABLETS PO SCH (22:22)
[2024-07-16] MEDS: GABAPENTIN 400 MG CAPSULE PO SCH (22:22)
[2024-07-16] MEDS: THIAMINE 100 MG TABLET PO SCH (22:22)
[2024-07-17] MEDS: TOPIRAMATE 25 MG TABLET PO SCH (10:17)
[2024-07-17] MEDS: amLODIPine BESYLATE 5 MG TABLET (FP) PO SCH (10:17)
[2024-07-17] MEDS: NALTREXONE HCL 50 MG TABLET PO SCH (10:17)
[2024-07-17 12:12] LABS: HEMATOCRIT 38.4 % (35.4-49); HEMOGLOBIN 13.1 GM/dL (11.7-16.9); MCH 33.4 pg (25.7-33.7); MEAN PLT VOLUME 9.9 fl (7.5-11.1); PLATELET COUNT 190 10^3/uL (134-434); RBC 3.92 M/mm3 (4.00-5.60); RDW 14.6 % (11.9-15.9); WHITE BLOOD COUNT 7.6 K/mm3 (4.0-10.0)
[2024-07-17 12:27] LABS: POTASSIUM 4.5 mmol/L (3.5-5.1)
[2024-07-17 12:34] LABS: ALBUMIN 3.9 g/dl (3.4-5.0); BLOOD UREA NITROGEN 12.6 mg/dL (7-18); CALCIUM 9.6 mg/dL (8.5-10.1); CREATININE 1.1 mg/dL (0.55-1.3)
[2024-07-17 12:36] LABS: BILIRUBIN,TOTAL 1.4 mg/dL (0.2-1); TOT PROT 7.3 g/dl (6.4-8.2)
[2024-07-17] MEDS: hydrOXYzine PAMOATE 25 MG CAPSULE (FP) PO PRN (17:41)
[2024-07-17] MEDS: traZODone HCL 50 MG TABLET (FP) PO SCH (22:38)
[2024-07-18] MEDS: chlordiazePOXIDE HCL 25 MG CAPSULE PO SCH (05:43)
[2024-07-18] MEDS: METHOCARBAMOL 500 MG TABLET PO PRN (11:32)
[2024-07-18] MEDS: GABAPENTIN 300 MG CAPSULE PO SCH (22:16)
[2024-07-19] MEDS ORDERED: chlordiazePOXIDE HCL 10 MG CAPSULE PO PRN
[2024-07-19] MEDS: chlordiazePOXIDE HCL 10 MG CAPSULE PO SCH (05:44)
[2024-07-20] MEDS: chlordiazePOXIDE HCL 10 MG CAPSULE PO SCH ×2 (05:32→18:47)
[2024-07-20] MEDS: chlordiazePOXIDE HCL 10 MG CAPSULE PO ONE (22:14)
[2024-07-21] MEDS: chlordiazePOXIDE HCL 10 MG CAPSULE PO ONE (05:35)
[2024-07-21 09:20] VITALS: BP 126/77; PULSE 71; RESP 20; TEMP 97.6
== END 2024-07-21 09:22 | disposition home or self-care (01) | DRG 775 ==
LOC: YASAS 12:11 → Y6N 14:31 → Y3N 14:36
PROVIDERS: ADMIT Allergy & Immunology; ATTEND Allergy & Immunology
PROC: HZ2ZZZZ Detoxification Services for Substance Abuse Treatment (ICD-10-PCS; principal; 2024-07-16)
DX: F10.230 Alcohol dependence with withdrawal, uncomplicated (principal); F10.280 Alcohol dependence with alcohol-induced anxiety disorder; F10.282 Alcohol dependence with alcohol-induced sleep disorder; F10.24 Alcohol dependence with alcohol-induced mood disorder; F31.9 Bipolar disorder, unspecified; F43.10 Post-traumatic stress disorder, unspecified; G62.9 Polyneuropathy, unspecified; I10 Essential (primary) hypertension; K21.9 Gastro-esophageal reflux disease without esophagitis; M54.50 Low back pain, unspecified; G89.29 Other chronic pain; R73.9 Hyperglycemia, unspecified; Z62.810 Personal history of physical and sexual abuse in childhood; Z63.8 Other specified problems related to primary support group; Z87.11 Personal history of peptic ulcer disease; Z87.891 Personal history of nicotine dependence
CPT/HCPCS: 36415; 80053; 80305; 80307; 82962; 85027; 86780; 93005; 93010